=== PATIENT | female | born 2000 | race Two or more races ===

== ENCOUNTER 2022-06-15 22:42 | Emergency (ER) | payer MEDICAID, OTHER ==
[~2022-06-15] VITALS: Ht 149.9 cm; Wt 45.4 kg
[2022-06-16 00:03] LABS: Basophils # (auto) 0.1 10 ^3/uL (0-0.2); Basophils % (auto) 0.8 % (0.0-2.0); Eosinophils # (auto) 0.1 10 ^3/uL (0-0.8); Eosinophils % (auto) 0.8 % (0.0-7.0); Hemoglobin 13.7 g/dL (12.2-16.2); Lymphocytes # (auto) 2.6 10 ^3/uL (0.4-5.4); Lymphocytes % (auto) 32.9 % (10.0-50.0); Mean Corpuscular Hgb Conc. 32.5 g/dL (32.0-36.0); Monocytes # (auto) 0.5 10 ^3/uL (0-1.3); Monocytes % (auto) 6.9 % (0.0-12.0); Neutrophils # (auto) 4.6 10 ^3/uL (1.6-8.6); Neutrophils % (auto) 58.6 % (37.0-80.0); Red Blood Cells 4.89 10^6/uL (4.0-5.20); Red Cell Distribution Width 13.8 % (11.8-14.3); White Blood Cell 7.9 10^3/uL (4.4-10.8)
[2022-06-16 00:14] LABS: Nucleated Red Blood Cells % 5.4 %
[2022-06-16] MEDS ORDERED: IPRATROPIUM BROM 0.5 MG/2.5ML INH SOL NEB ONE (00:15)
[2022-06-16 00:21] LABS: Albumin 4.3 g/dL (3.4-5.0); Calcium 9.5 mg/dL (8.5-10.1); Potassium 3.3 mmol/L (3.5-5.1)
[2022-06-16 00:22] LABS: BUN/Creatinine Ratio 13.9
[2022-06-16 00:25] LABS: Bilirubin, Total 0.4 mg/dL (0.2-1.0); Total Protein 7.9 g/dL (6.4-8.2)
[2022-06-16] MEDS ORDERED: ALBU108A5 IN (01:17)
[2022-06-16] MEDS ORDERED: AZITTAB PO (01:17)
[2022-06-16] MEDS ORDERED: PRED20TA2 PO (01:17)
[2022-06-16 01:40] VITALS: BP 118/65
== END 2022-06-16 01:42 | disposition home or self-care (01) ==
LOC: EEVIPCON 22:42 → ER 22:42
DX: J40 Bronchitis, not specified as acute or chronic (principal); F41.9 Anxiety disorder, unspecified; Z20.822 Contact with and (suspected) exposure to COVID-19
CPT/HCPCS: 36415; 71045; 80053; 84443; 84484; 85025; 87426; 87804; 93005; 94640; 99285; J7644

== ENCOUNTER 2022-08-21 02:18 | Emergency (ER) | payer MEDICAID ==
[~2022-08-21] VITALS: Ht 149.9 cm; Wt 45.0 kg
[~2022-08-21 02:18] MED LIST: ALBU108A5 IN; AZITTAB PO; PRED20TA2 PO
[2022-08-21] MEDS ORDERED: KETOROLAC TROMETH 30 MG/ML 1ML VIAL IM ONE (05:30)
[2022-08-21] MEDS ORDERED: METHOCARBAMOL 500 MG TAB PO ONE (05:30)
[2022-08-21] MEDS ORDERED: METH500T22 PO (05:39)
[2022-08-21 06:06] VITALS: BP 120/65
== END 2022-08-21 06:08 | disposition home or self-care (01) ==
LOC: EEVIPCON 02:18 → ER 02:18
DX: S49.92XA Unspecified injury of left shoulder and upper arm, initial encounter (principal); M79.10 Myalgia, unspecified site; M54.6 Pain in thoracic spine; Z79.2 Long term (current) use of antibiotics; Z79.899 Other long term (current) drug therapy; X58.XXXA Exposure to other specified factors, initial encounter; Y93.89 Activity, other specified; Y92.89 Other specified places as the place of occurrence of the external cause; Y99.8 Other external cause status
CPT/HCPCS: 96372; 99283; J1885

== ENCOUNTER 2022-11-03 06:37 | Emergency (ER) | payer MEDICAID ==
[~2022-11-03] VITALS: Ht 149.9 cm; Wt 47.6 kg
[~2022-11-03 06:37] MED LIST changes: +METH500T22 PO; +ONDA-144 PO
[2022-11-03] MEDS ORDERED: cefTRIAXone SOD 1,000 MG VL IM ONE (07:00)
[2022-11-03] MEDS ORDERED: STERILE WATER 10 ML ONE (07:01)
[2022-11-03 07:48] VITALS: BP 103/63
[2022-11-03] MEDS ORDERED: METH4PAK PO (08:14)
[2022-11-03] MEDS ORDERED: AZIT250T8 PO (08:14)
== END 2022-11-03 08:20 | disposition home or self-care (01) ==
LOC: EEVIPCON 06:37 → ER 06:37
DX: J03.90 Acute tonsillitis, unspecified (principal); Z20.822 Contact with and (suspected) exposure to COVID-19
CPT/HCPCS: 36415; 87070; 87426; 87880; 96372; 99283; J0696

== ENCOUNTER 2023-02-10 01:10 | Emergency (ER) | payer MEDICAID ==
[~2023-02-10] VITALS: Ht 149.9 cm; Wt 46.5 kg
[~2023-02-10 01:10] MED LIST changes: +AMOX875T4 PO; +AZIT-81 PO; +METH-1181 PO; +METH4PAK PO; -METH500T22 PO
[2023-02-10 01:34] VITALS: TEMP 98.6
[2023-02-10 01:35] VITALS: PULSE 83; RESP 20; O2SAT 96
[2023-02-10] MEDS ORDERED: IOHEXOL 350 MG/ML 100ML IJ ONE (01:42)
[2023-02-10 01:44] LABS: Basophils # (auto) 0.1 10 ^3/uL (0-0.2); Basophils % (auto) 0.7 % (0.0-2.0); Eosinophils # (auto) 0.2 10 ^3/uL (0-0.8); Eosinophils % (auto) 2.2 % (0.0-7.0); Hematocrit 38.3 % (36.0-46.0); Hemoglobin 12.8 g/dL (12.2-16.2); Lymphocytes % (auto) 42.8 % (10.0-50.0); Mean Corpuscular Hemoglobin 29.2 pg (28.0-32.0); Mean Corpuscular Hgb Conc. 33.5 g/dL (32.0-36.0); Mean Corpuscular Volume 87.2 fL (80.0-100.0); Monocytes # (auto) 0.8 10 ^3/uL (0-1.3); Monocytes % (auto) 11.4 % (0.0-12.0); Neutrophils % (auto) 42.9 % (37.0-80.0); Nucleated Red Blood Cells % 0.1 %; Red Blood Cells 4.39 10^6/uL (4.0-5.20); Red Cell Distribution Width 13.8 % (11.8-14.3)
[2023-02-10 02:05] LABS: Albumin 4.1 g/dL (3.4-5.0); Calcium 8.6 mg/dL (8.5-10.1)
[2023-02-10 02:08] LABS: BUN/Creatinine Ratio 28.1 (10.0-20.0)
[2023-02-10 02:10] LABS: Bilirubin, Total 0.3 mg/dL (0.2-1.0); Total Protein 7.2 g/dL (6.4-8.2)
[2023-02-10 03:09] LABS: Urine Bacteria NONE SEEN /hpf (None Seen); Urine Blood Negative /uL (Negative); Urine Clarity Clear (Clear); Urine Protein, UAD Negative (Negative); Urine Urobilinogen Normal (Negative); Urine WBC <1 /hpf (0 - 5); Urine pH 5.5 (5.0-8.0)
[2023-02-10 03:15] LABS: Urine Color Straw (Yellow); Urine Specific Gravity > 1.050 (1.001-1.035)
[2023-02-10 03:41] VITALS: BP 97/62; PULSE 90; RESP 15; O2SAT 97
== END 2023-02-10 03:46 | disposition home or self-care (01) ==
LOC: EEVIPCON 01:12 → ER 01:12
DX: R00.2 Palpitations (principal); F41.9 Anxiety disorder, unspecified; Z79.899 Other long term (current) drug therapy
CPT/HCPCS: 36415; 71045; 71275; 80053; 81001; 83690; 83880; 84443; 84484; 85025; 93005; 99285; Q9967

== ENCOUNTER 2023-04-26 08:23 | Emergency (ER) | payer MEDICAID ==
[~2023-04-26] VITALS: Ht 149.9 cm; Wt 43.1 kg
[2023-04-26] MEDS ORDERED: SODIUM CHLORIDE 0.9% 1,000 ML IV ONE (08:45)
[2023-04-26 08:58] LABS: Basophils # (auto) 0.1 10 ^3/uL (0-0.2); Basophils % (auto) 1.2 % (0.0-2.0); Eosinophils # (auto) 0.1 10 ^3/uL (0-0.8); Eosinophils % (auto) 0.8 % (0.0-7.0); Hematocrit 38.5 % (36.0-46.0); Hemoglobin 12.9 g/dL (12.2-16.2); Lymphocytes # (auto) 2.7 10 ^3/uL (0.4-5.4); Mean Corpuscular Hemoglobin 28.4 pg (28.0-32.0); Mean Corpuscular Hgb Conc. 33.6 g/dL (32.0-36.0); Mean Corpuscular Volume 84.6 fL (80.0-100.0); Monocytes # (auto) 0.9 10 ^3/uL (0-1.3); Nucleated Red Blood Cells % 0.1 %; Red Blood Cells 4.55 10^6/uL (4.0-5.20); Red Cell Distribution Width 14.2 % (11.8-14.3); White Blood Cell 7.8 10^3/uL (4.4-10.8)
[2023-04-26] MEDS ORDERED: ONDANSETRON HCL 4 MG/2 ML VIAL ONE (09:22)
[2023-04-26 09:25] LABS: Alanine Aminotransferase 55 U/L (7-40); Albumin 4.6 g/dL (3.2-4.8); Alkaline Phosphatase 61 U/L (46-116); Anion Gap 7 (5-15); Aspartate Aminotransferase 35 U/L (13-40); BUN/Creatinine Ratio 15.4 (10.0-20.0); Bilirubin, Total 0.7 mg/dL (0.2-1.0); Blood Urea Nitrogen 10 mg/dL (9-23); Calcium 9.3 mg/dL (8.7-10.4); Carbon Dioxide 24 mmol/L (20-30); Chloride 104 mmol/L (98-107); Glucose 102 mg/dL (74-106); Potassium 3.8 mmol/L (3.5-5.1); Sodium 135 mmol/L (136-145); Total Protein 7.6 g/dL (5.7-8.2)
[2023-04-26] MEDS ORDERED: ONDANSETRON HCL 4 MG/2 ML VIAL IV ONE (09:30)
[2023-04-26 10:08] VITALS: BP 115/65; PULSE 95; RESP 16; TEMP 98.2; O2SAT 99
[2023-04-26 12:19] LABS: Urine Bacteria NONE SEEN /hpf (None Seen); Urine Blood TRACE /uL (Negative); Urine Clarity Clear (Clear); Urine Color Yellow (Yellow); Urine Mucus FEW (None Seen); Urine Protein, UAD Negative (Negative); Urine Specific Gravity 1.025 (1.001-1.035); Urine Urobilinogen Normal (Negative); Urine WBC 1 /hpf (0 - 5); Urine pH 5.5 (5.0-8.0)
[2023-04-26] MEDS ORDERED: DOXY10TA PO (12:38)
[2023-04-26] MEDS ORDERED: CEPH500T PO (12:38)
== END 2023-04-26 13:03 | disposition home or self-care (01) ==
LOC: EEVIPCON 08:23 → ER 08:23
DX: O23.41 Unspecified infection of urinary tract in pregnancy, first trimester (principal); R10.2 Pelvic and perineal pain; O21.9 Vomiting of pregnancy, unspecified; F41.9 Anxiety disorder, unspecified; Z3A.01 Less than 8 weeks gestation of pregnancy; Z79.899 Other long term (current) drug therapy
CPT/HCPCS: 36415; 76801; 76817; 80053; 81001; 81025; 84702; 85025; 86850; 86900; 86901; 96361; 96374; 99285; J2405; J7030

== ENCOUNTER 2023-05-03 21:36 | Emergency (ER) | payer MEDICAID ==
[~2023-05-03] VITALS: Ht 149.9 cm; Wt 43.2 kg
[~2023-05-03 21:36] MED LIST changes: +CEPH500T PO; +DOXY10TA PO
[2023-05-03] MEDS ORDERED: METOCLOPRAMIDE HCL 5MG/ml INJ 2ml VIAL IV ONE (22:15)
[2023-05-03] MEDS ORDERED: diphenhdrAMINE HCL 50 MG/1 ML VL IV ONE (22:15)
[2023-05-03] MEDS ORDERED: SODIUM CHLORIDE 0.9% 1,000 ML IV ONE (22:15)
[2023-05-03 22:18] LABS: Basophils # (auto) 0.1 10 ^3/uL (0-0.2); Basophils % (auto) 0.8 % (0.0-2.0); Eosinophils # (auto) 0.1 10 ^3/uL (0-0.8); Eosinophils % (auto) 0.7 % (0.0-7.0); Hematocrit 39.5 % (36.0-46.0); Hemoglobin 13.3 g/dL (12.2-16.2); Lymphocytes # (auto) 3.3 10 ^3/uL (0.4-5.4); Lymphocytes % (auto) 40.5 % (10.0-50.0); Mean Corpuscular Hemoglobin 28.7 pg (28.0-32.0); Mean Corpuscular Hgb Conc. 33.6 g/dL (32.0-36.0); Mean Corpuscular Volume 85.6 fL (80.0-100.0); Monocytes # (auto) 0.9 10 ^3/uL (0-1.3); Monocytes % (auto) 10.7 % (0.0-12.0); Neutrophils # (auto) 3.9 10 ^3/uL (1.6-8.6); Neutrophils % (auto) 47.3 % (37.0-80.0); Nucleated Red Blood Cells % 0.1 %; Red Blood Cells 4.61 10^6/uL (4.0-5.20); Red Cell Distribution Width 14.2 % (11.8-14.3); White Blood Cell 8.2 10^3/uL (4.4-10.8)
[2023-05-03 22:33] LABS: Alanine Aminotransferase 24 U/L (7-40); Albumin 4.7 g/dL (3.2-4.8); Alkaline Phosphatase 55 U/L (46-116); Anion Gap 10 (5-15); Aspartate Aminotransferase 19 U/L (13-40); BUN/Creatinine Ratio 17.4 (10.0-20.0); Blood Urea Nitrogen 12 mg/dL (9-23); Calcium 9.6 mg/dL (8.5-10.1); Carbon Dioxide 22 mmol/L (20-30); Chloride 105 mmol/L (98-107); Glucose 86 mg/dL (74-106); Potassium 3.6 mmol/L (3.5-5.1); Sodium 137 mmol/L (136-145)
[2023-05-03 22:34] LABS: Bilirubin, Total 0.8 mg/dL (0.2-1.0); Total Protein 7.7 g/dL (5.7-8.2)
[2023-05-03 23:40] VITALS: PULSE 79; RESP 13; TEMP 98.4; O2SAT 100
[2023-05-04] MEDS ORDERED: LACTATED RINGER'S 1,000 ML IV ONE (00:15)
[2023-05-04] MEDS ORDERED: ONDANSETRON HCL 4 MG/2 ML VIAL IV ONE (00:15)
[2023-05-04 06:37] LABS: Urine Bacteria FEW /hpf (None Seen); Urine Blood Negative /uL (Negative); Urine Clarity HAZY (Clear); Urine Color Yellow (Yellow); Urine Mucus MANY (None Seen); Urine Protein, UAD TRACE (Negative); Urine Specific Gravity 1.031 (1.001-1.035); Urine Urobilinogen Normal (Negative); Urine WBC 10 /hpf (0 - 5)
[2023-05-04] MEDS ORDERED: miSOPROStol 50 MCG per PRE-CUT 1/2 TAB VG STA (06:56)
[2023-05-04] MEDS ORDERED: cefTRIAXone 1GM/50ML D5W 50 ML IV ONE (07:00)
[2023-05-04 07:39] VITALS: BP 97/53; PULSE 73; RESP 18; O2SAT 98
== END 2023-05-04 07:45 | disposition home or self-care (01) ==
LOC: ER 21:36 → EEVIPCON 21:36 → ER 05-04 07:45
DX: O02.0 Blighted ovum and nonhydatidiform mole (principal); O08.83 Urinary tract infection following an ectopic and molar pregnancy; O21.8 Other vomiting complicating pregnancy; N39.0 Urinary tract infection, site not specified; Z3A.01 Less than 8 weeks gestation of pregnancy
CPT/HCPCS: 36415; 76801; 80053; 81001; 83690; 84702; 85025; 96361; 96365; 96375; 99285; J0696; J1200; J2405; J2765; J7030

== ENCOUNTER 2023-05-11 21:55 | Emergency (ER) | payer MEDICAID ==
[~2023-05-11] VITALS: Ht 149.9 cm; Wt 42.5 kg
[2023-05-11] MEDS ORDERED: IOHEXOL 300 MG/ML 100ML BOTTLE IJ ONE (22:22)
[2023-05-11 22:24] LABS: Basophils # (auto) 0.1 10 ^3/uL (0-0.2); Basophils % (auto) 0.4 % (0.0-2.0); Eosinophils # (auto) 0.1 10 ^3/uL (0-0.8); Hematocrit 39.7 % (36.0-46.0); Hemoglobin 13.2 g/dL (12.2-16.2); Lymphocytes # (auto) 4.1 10 ^3/uL (0.4-5.4); Lymphocytes % (auto) 32.3 % (10.0-50.0); Mean Corpuscular Hemoglobin 28.3 pg (28.0-32.0); Mean Corpuscular Hgb Conc. 33.1 g/dL (32.0-36.0); Mean Corpuscular Volume 85.4 fL (80.0-100.0); Monocytes # (auto) 1.1 10 ^3/uL (0-1.3); Monocytes % (auto) 8.6 % (0.0-12.0); Neutrophils # (auto) 7.3 10 ^3/uL (1.6-8.6); Neutrophils % (auto) 57.7 % (37.0-80.0); Red Blood Cells 4.65 10^6/uL (4.0-5.20); Red Cell Distribution Width 14.2 % (11.8-14.3); White Blood Cell 12.6 10^3/uL (4.4-10.8)
[2023-05-11 22:30] VITALS: PULSE 85; RESP 16; O2SAT 96
[2023-05-11 22:41] LABS: INR 1.16 (0.9-1.15); Partial Thromboplastin Time 30.5 SEC (24.5-34.5); Prothrombin Time 12.1 sec (9.3-11.8)
[2023-05-11 22:43] LABS: Alanine Aminotransferase 16 U/L (7-40); Albumin 4.6 g/dL (3.2-4.8); Alkaline Phosphatase 54 U/L (46-116); Anion Gap 8 (5-15); Aspartate Aminotransferase 17 U/L (13-40); BUN/Creatinine Ratio 14.3 (10.0-20.0); Bilirubin, Total 0.5 mg/dL (0.2-1.0); Blood Urea Nitrogen 9 mg/dL (9-23); Calcium 9.1 mg/dL (8.7-10.4); Carbon Dioxide 23 mmol/L (20-30); Chloride 106 mmol/L (98-107); Glucose 98 mg/dL (74-106); Lipase 54 U/L (12-53); Potassium 3.8 mmol/L (3.5-5.1); Sodium 137 mmol/L (136-145); Total Protein 7.1 g/dL (5.7-8.2)
[2023-05-11] MEDS ORDERED: SODIUM CHLORIDE 0.9% 1,000 ML IV ONE (22:45)
[2023-05-11] MEDS ORDERED: ONDANSETRON HCL 4 MG/2 ML VIAL IV ONE (22:45)
[2023-05-11 23:22] VITALS: TEMP 98.4
[2023-05-12] MEDS ORDERED: MORPHINE SULFATE 4 MG/ML SYR/VIAL IV ONE
[2023-05-12] MEDS ORDERED: SODIUM CHLORIDE 0.9% 1,000 ML IV ONE (00:45)
[2023-05-12 06:10] VITALS: BP 100/58; PULSE 65; RESP 14; O2SAT 97
== END 2023-05-12 06:22 | disposition home or self-care (01) ==
LOC: ER 21:55 → EEVIPCON 21:55 → ER 05-12 06:22
DX: O03.9 Complete or unspecified spontaneous abortion without complication (principal); R10.2 Pelvic and perineal pain; F41.9 Anxiety disorder, unspecified; Z79.899 Other long term (current) drug therapy
CPT/HCPCS: 36415; 74176; 76801; 80053; 83690; 84702; 85025; 85610; 85730; 86850; 86900; 86901; 96361; 96374; 96375; 99285; J2270; J2405; J7030

== ENCOUNTER 2023-05-17 11:36 | Emergency (ER) | payer MEDICAID ==
[~2023-05-17] VITALS: Ht 149.9 cm; Wt 43.2 kg
[2023-05-17 11:45] VITALS: BP 99/65; PULSE 73; RESP 16; TEMP 98.3; O2SAT 98
== END 2023-05-17 13:08 | disposition home or self-care (01) ==
LOC: ER 11:36
DX: Z56.6 Other physical and mental strain related to work (principal); Z79.2 Long term (current) use of antibiotics; Z79.899 Other long term (current) drug therapy

== ENCOUNTER 2023-09-15 23:01 | Emergency (ER) | payer MEDICAID ==
[~2023-09-15] VITALS: Ht 149.9 cm; Wt 39.8 kg
[2023-09-15] MEDS: METOCLOPRAMIDE HCL 5MG/ml INJ 2ml VIAL IV ONE (23:27)
[2023-09-15] MEDS: SODIUM CHLORIDE 0.9% 1,000 ML IVB ONE (23:27)
[2023-09-15 23:43] LABS: Basophils # (auto) 0 10 ^3/uL (0-0.2); Basophils % (auto) 0.5 % (0.0-2.0); Eosinophils # (auto) 0 10 ^3/uL (0-0.8); Eosinophils % (auto) 0.2 % (0.0-7.0); Hematocrit 38.8 % (36.0-46.0); Hemoglobin 12.6 g/dL (12.2-16.2); Lymphocytes # (auto) 1.7 10 ^3/uL (0.4-5.4); Lymphocytes % (auto) 21.8 % (10.0-50.0); Mean Corpuscular Hemoglobin 27.6 pg (28.0-32.0); Mean Corpuscular Hgb Conc. 32.6 g/dL (32.0-36.0); Mean Corpuscular Volume 84.6 fL (80.0-100.0); Monocytes # (auto) 0.7 10 ^3/uL (0-1.3); Monocytes % (auto) 8.5 % (0.0-12.0); Neutrophils # (auto) 5.5 10 ^3/uL (1.6-8.6); Red Blood Cells 4.59 10^6/uL (4.0-5.20); Red Cell Distribution Width 15.8 % (11.8-14.3)
[2023-09-15 23:50] VITALS: PULSE 97; RESP 11; O2SAT 93
[2023-09-15 23:52] LABS: Alanine Aminotransferase 10 U/L (7-40); Albumin 4.3 g/dL (3.2-4.8); Alkaline Phosphatase 37 U/L (46-116); Anion Gap 10 (5-15); Aspartate Aminotransferase 16 U/L (13-40); BUN/Creatinine Ratio 20.8 (10.0-20.0); Bilirubin, Total 0.6 mg/dL (0.2-1.0); Blood Urea Nitrogen 11 mg/dL (9-23); Calcium 9.6 mg/dL (8.7-10.4); Carbon Dioxide 20 mmol/L (20-30); Chloride 106 mmol/L (98-107); Glucose 79 mg/dL (74-106); Lipase 56 U/L (12-53); Potassium 3.6 mmol/L (3.5-5.1); Sodium 136 mmol/L (136-145); Total Protein 7.2 g/dL (5.7-8.2)
[2023-09-16] MEDS: SODIUM CHLORIDE 0.9% 1,000 ML IV ONE (03:38)
[2023-09-16 03:57] LABS: Urine Bacteria NONE SEEN /hpf (None Seen); Urine Blood Negative /uL (Negative); Urine Clarity Clear (Clear); Urine Color Yellow (Yellow); Urine Mucus FEW (None Seen); Urine Protein, UAD TRACE (Negative); Urine Specific Gravity 1.031 (1.001-1.035); Urine Urobilinogen Normal (Negative); Urine WBC 2 /hpf (0 - 5); Urine pH 5.5 (5.0-8.0)
[2023-09-16 05:46] VITALS: BP 100/67; PULSE 86; RESP 15; TEMP 97.6; O2SAT 99
[2023-09-16] MEDS ORDERED: METO-281 PO (05:57)
[2023-09-16] MEDS ORDERED: DOXY10TA OR (05:57)
== END 2023-09-16 06:10 | disposition home or self-care (01) ==
LOC: EEVIPCON 23:01 → ER 23:01
DX: O21.0 Mild hyperemesis gravidarum (principal); R10.2 Pelvic and perineal pain; Z3A.10 10 weeks gestation of pregnancy
CPT/HCPCS: 36415; 76801; 80053; 81001; 83605; 83690; 84702; 85025; 87040; 87086; 96361; 96374; 99285; J2765; J7030

== ENCOUNTER 2023-11-30 10:08 | Emergency (ER) | payer MEDICAID ==
[~2023-11-30] VITALS: Ht 149.9 cm; Wt 43.8 kg
[~2023-11-30 10:08] MED LIST changes: +AZIT-185 PO; -AZIT-81 PO; +DOXY10TA OR; +METO-281 PO; +METO5TAB67 PO
[2023-11-30] MEDS: SODIUM CHLORIDE 0.9% 1,000 ML IV ONE (10:30)
[2023-11-30] MEDS: METOCLOPRAMIDE HCL 5MG/ml INJ 2ml VIAL IV ONE (10:33)
[2023-11-30 10:41] LABS: Basophils # (auto) 0 10 ^3/uL (0-0.2); Basophils % (auto) 0.3 % (0.0-2.0); Eosinophils # (auto) 0 10 ^3/uL (0-0.8); Eosinophils % (auto) 0.3 % (0.0-7.0); Hematocrit 32.6 % (36.0-46.0); Hemoglobin 11.2 g/dL (12.2-16.2); Lymphocytes # (auto) 1.9 10 ^3/uL (0.4-5.4); Mean Corpuscular Hemoglobin 29.3 pg (28.0-32.0); Mean Corpuscular Hgb Conc. 34.2 g/dL (32.0-36.0); Mean Corpuscular Volume 85.5 fL (80.0-100.0); Monocytes # (auto) 0.9 10 ^3/uL (0-1.3); Monocytes % (auto) 8.7 % (0.0-12.0); Neutrophils # (auto) 7.1 10 ^3/uL (1.6-8.6); Neutrophils % (auto) 71.7 % (37.0-80.0); Red Blood Cells 3.81 10^6/uL (4.0-5.20); Red Cell Distribution Width 15.1 % (11.8-14.3); White Blood Cell 9.9 10^3/uL (4.4-10.8)
[2023-11-30 10:50] LABS: Chloride 108 mmol/L (98-107); Potassium 3.9 mmol/L (3.5-5.1); Sodium 138 mmol/L (136-145)
[2023-11-30 10:51] LABS: Anion Gap 4 (5-15); Carbon Dioxide 26 mmol/L (20-30)
[2023-11-30 10:52] LABS: Calcium 9.1 mg/dL (8.5-10.1)
[2023-11-30 10:56] LABS: Glucose 78 mg/dL (74-106)
[2023-11-30 10:57] LABS: BUN/Creatinine Ratio 18.4 (10.0-20.0); Blood Urea Nitrogen 9 mg/dL (9-23)
[2023-11-30] MEDS: LORazepam 2MG/ML-1ML VIAL IV ONE (11:48)
[2023-11-30 14:25] VITALS: BP 121/62; PULSE 98; RESP 20; TEMP 98.2; O2SAT 96
[2023-11-30 14:48] LABS: Urine Bacteria FEW /hpf (None Seen); Urine Blood Negative /uL (Negative); Urine Clarity Clear (Clear); Urine Color Yellow (Yellow); Urine Mucus FEW (None Seen); Urine Protein, UAD Negative (Negative); Urine Specific Gravity 1.025 (1.001-1.035); Urine Urobilinogen Normal (Negative); Urine WBC 2 /hpf (0 - 5); Urine pH 6.5 (5.0-9.0)
[2023-11-30] MEDS ORDERED: NITR-87 PO (14:52)
== END 2023-11-30 15:21 | disposition home or self-care (01) ==
LOC: EEVIPCON 10:08 → ER 10:08
DX: O21.0 Mild hyperemesis gravidarum (principal); O23.42 Unspecified infection of urinary tract in pregnancy, second trimester; N39.0 Urinary tract infection, site not specified; Z3A.20 20 weeks gestation of pregnancy
CPT/HCPCS: 36415; 80048; 81001; 85025; 96361; 96374; 96375; 99284; J2765; J7030